=== PATIENT | female | born 1990 | race American Indian/Alaskan Native ===

== ENCOUNTER 2019-10-20 13:08 | Emergency (ER) | payer MEDICAID ==
[2019-10-20] MEDS ORDERED: SODIUM CHLORIDE 0.9% 1000 ML 1,000 ML IV ONE (13:49)
[2019-10-20] MEDS ORDERED: ONDANSETRON 4 MG/2 ML INJ IV ONE (13:49)
[2019-10-20] MEDS ORDERED: MORPHINE 4 MG/1 ML INJ IV ONE (13:49)
[2019-10-20 14:05] LABS: Basophils % (Auto) 0.6 % (0.0-1.8); Hematocrit 38.3 % (30.3-42.9); Hemoglobin 12.1 gm/dl (10.1-14.3); Lymphocytes # (Auto) 0.9 K/mm3 (1.2-5.4); Lymphocytes % (Auto) 12.5 % (13.4-35.0); Mean Corpuscular HGB Conc 32 % (30-34); Mean Corpuscular Volume 79 fl (79-97); Monocytes # (Auto) 0.3 K/mm3 (0.0-0.8); Monocytes % (Auto) 3.7 % (0.0-7.3); Platelet Count 267 K/mm3 (140-440); Red Blood Count 4.85 M/mm3 (3.65-5.03); Red Cell Distribution Width 13.2 % (13.2-15.2)
[2019-10-20 14:06] LABS: Bilirubin,Urine NEG (Negative); Blood,Urine NEG (Negative); Color,Urine Yellow (Yellow); Mucus,Urine 3+ /HPF; Urobilinogen,Urine < 2.0 mg/dL (<2.0)
[2019-10-20 14:36] LABS: Alanine Aminotransferase 12 units/L (7-56); Albumin 4.5 g/dL (3.9-5); Blood Urea Nitrogen 9 mg/dL (7-17); Calcium 9.3 mg/dL (8.4-10.2); Hemolysis Index 47
[2019-10-20 14:43] LABS: BUN/Creatinine Ratio 15
[2019-10-20 15:15] VITALS: BP 106/69
[2019-10-20] MEDS ORDERED: METOCLOPRAMIDE 10 MG/2 ML INJ IV ONE (15:43)
[2019-10-20] MEDS ORDERED: diphenhydrAMINE 50 MG/ML VIAL IV ONE (15:43)
--- NOTE | 2019-10-20 17:24 | Emergency Department Report ---
ED N/V/D HPI - General Chief complaint: Abdominal Pain Stated complaint: VOMIT 2 DAYS Time Seen by Provider: 10/20/19 13:45 Source: patient Mode of arrival: Ambulatory Limitations: No Limitations - History of Present Illness Initial comments: Patient is a 29-year-old female presents emergency room complaints of nausea, vomiting, diarrhea that began 2 days ago. She states that she is unable to tolerate p.o. intake. Patient states that she last ate [employer] and began to experience the symptoms later on. She states she has associated generalized abd ominal discomfort. She denies any fever, dysuria, hematochezia, hematemesis, melena. She denies any sick contacts or recent travel. She denies any recent antibiotics. She denies any past medical history. No allergies to medications. She denies any past abdominal surgical history. She states her last menstrual cycle was last week. - Related Data Previous Rx's Medication Instructions Recorded Last Taken Type Ondansetron [Zofran Odt] 4 mg PO Q8HR PRN #10 tab.rapdis 10/20/19 Unknown Rx Promethazine HCl [Phenergan SUPPOS] 25 mg RC Q8HR PRN #5 supp.rect 10/20/19 Unknown Rx Allergies Allergy/AdvReac Type Severity Reaction Status Date / Time No Known Allergies Allergy Unverified 10/20/19 13:27 ED Review of Systems ROS: Stated complaint: VOMIT 2 DAYS Other details as noted in HPI Comment: All other systems reviewed and negative ED Past Medical Hx - Past Medical History Previous Medical History?: No - Surgical History Past Surgical History?: No - Medications Home Medications: Home Medications Medication Instructions Recorded Confirmed Last Taken Type Ondansetron [Zofran Odt] 4 mg PO Q8HR PRN #10 tab.rapdis 10/20/19 Unknown Rx Promethazine HCl [Phenergan SUPPOS] 25 mg RC Q8HR PRN #5 supp.rect 10/20/19 Unknown Rx ED Physical Exam - General Limitations: No Limitations General appearance: alert, other (actively vomiting) - Head Head exam: Present: atraumatic, normocephalic - Eye Eye exam: Present: normal appearance - ENT ENT exam: Present: mucous membranes moist - Respiratory Respiratory exam: Present: normal lung sounds bilaterally. Absent: respiratory distress, wheezes, rales, rhonchi, stridor, chest wall tenderness, accessory muscle use, decreased breath sounds, prolonged expiratory - Cardiovascular Cardiovascular Exam: Present: regular rate, normal rhythm, normal heart sounds. Absent: systolic murmur, diastolic murmur, rubs, gallop - GI/Abdominal GI/Abdominal exam: Present: soft, normal bowel sounds, other (negative murphys sign, negative mcburneys point ttp). Absent: distended, tenderness, guarding, rebound, rigid - Neurological Exam Neurological exam: Present: alert, oriented X3 - Psychiatric Psychiatric exam: Present: normal affect, normal mood - Skin Skin exam: Present: warm, dry, intact ED Course Vital Signs 10/20/19 10/20/19 10/20/19 13:15 14:11 15:13 Temperature 97.8 F Pulse Rate 81 61 Respiratory 22 18 Rate Blood Pressure 141/82 106/69 O2 Sat by Pulse 97 100 Oximetry ED Medical Decision Making - Lab Data Result diagrams: 10/20/19 13:53 10/20/19 13:53 Lab Results 10/20/19 10/20/19 10/20/19 Range/Units 13:42 13:53 13:53 WBC 7.2 (4.5-11.0) K/mm3 RBC 4.85 (3.65-5.03) M/mm3 Hgb 12.1 (10.1-14.3) gm/dl Hct 38.3 (30.3-42.9) % MCV 79 (79-97) fl MCH 25 L (28-32) pg MCHC 32 (30-34) % RDW 13.2 (13.2-15.2) % Plt Count 267 (140-440) K/mm3 Lymph % (Auto) 12.5 L (13.4-35.0) % Foard % (Auto) 3.7 (0.0-7.3) % Eos % (Auto) 0.0 (0.0-4.3) % Baso % (Auto) 0.6 (0.0-1.8) % Lymph # 0.9 L (1.2-5.4) K/mm3 Foard # 0.3 (0.0-0.8) K/mm3 Eos # 0.0 (0.0-0.4) K/mm3 Baso # 0.0 (0.0-0.1) K/mm3 Seg Neutrophils % 83.2 H (40.0-70.0) % Seg Neutrophils # 6.0 (1.8-7.7) K/mm3 Sodium 139 (137-145) mmol/L Potassium 3.5 L (3.6-5.0) mmol/L Chloride 99.3 (98-107) mmol/L Carbon Dioxide 23 (22-30) mmol/L Anion Gap 20 mmol/L BUN 9 (7-17) mg/dL Creatinine 0.6 (0.6-1.2) mg/dL Estimated GFR > 60 ml/min BUN/Creatinine Ratio 15 % Glucose 118 H (65-100) mg/dL Calcium 9.3 (8.4-10.2) mg/dL Total Bilirubin 0.20 (0.1-1.2) mg/dL AST 21 (5-40) units/L ALT 12 (7-56) units/L Alkaline Phosphatase 58 (35-129) units/L Total Protein 8.1 (6.3-8.2) g/dL Albumin 4.5 (3.9-5) g/dL Albumin/Globulin Ratio 1.3 % Lipase (13-60) units/L HCG, Qual (Negative) Urine Color Yellow (Yellow) Urine Turbidity Clear (Clear) Urine pH 7.0 (5.0-7.0) Ur Specific [place] 1.025 (1.003-1.030) Urine Protein 30 mg/dl (Negative) mg/dL Urine Glucose (UA) Neg (Negative) mg/dL Urine Ketones 20 (Negative) mg/dL Urine Blood Neg (Negative) Urine Nitrite Neg (Negative) Urine Bilirubin Neg (Negative) Urine Urobilinogen < 2.0 (<2.0) mg/dL Ur Leukocyte Esterase Neg (Negative) Urine WBC (Auto) 3.0 (0.0-6.0) /HPF Urine RBC (Auto) 7.0 (0.0-6.0) /HPF U Epithel Cells (Auto) 5.0 (0-13.0) /HPF Urine Mucus 3+ /HPF 10/20/19 10/20/19 Range/Units 13:53 13:53 WBC (4.5-11.0) K/mm3 RBC (3.65-5.03) M/mm3 Hgb (10.1-14.3) gm/dl Hct (30.3-42.9) % MCV (79-97) fl MCH (28-32) pg MCHC (30-34) % RDW (13.2-15.2) % Plt Count (140-440) K/mm3 Lymph % (Auto) (13.4-35.0) % Foard % (Auto) (0.0-7.3) % Eos % (Auto) (0.0-4.3) % Baso % (Auto) (0.0-1.8) % Lymph # (1.2-5.4) K/mm3 Foard # (0.0-0.8) K/mm3 Eos # (0.0-0.4) K/mm3 Baso # (0.0-0.1) K/mm3 Seg Neutrophils % (40.0-70.0) % Seg Neutrophils # (1.8-7.7) K/mm3 Sodium (137-145) mmol/L Potassium (3.6-5.0) mmol/L Chloride (98-107) mmol/L Carbon Dioxide (22-30) mmol/L Anion Gap mmol/L BUN (7-17) mg/dL Creatinine (0.6-1.2) mg/dL Estimated GFR ml/min BUN/Creatinine Ratio % Glucose (65-100) mg/dL Calcium (8.4-10.2) mg/dL Total Bilirubin (0.1-1.2) mg/dL AST (5-40) units/L ALT (7-56) units/L Alkaline Phosphatase (35-129) units/L Total Protein (6.3-8.2) g/dL Albumin (3.9-5) g/dL Albumin/Globulin Ratio % Lipase 12 L (13-60) units/L HCG, Qual Negative (Negative) Urine Color (Yellow) Urine Turbidity (Clear) Urine pH (5.0-7.0) Ur Specific [place] (1.003-1.030) Urine Protein (Negative) mg/dL Urine Glucose (UA) (Negative) mg/dL Urine Ketones (Negative) mg/dL Urine Blood (Negative) Urine Nitrite (Negative) Urine Bilirubin (Negative) Urine Urobilinogen (<2.0) mg/dL Ur Leukocyte Esterase (Negative) Urine WBC (Auto) (0.0-6.0) /HPF Urine RBC (Auto) (0.0-6.0) /HPF U Epithel Cells (Auto) (0-13.0) /HPF Urine Mucus /HPF - Medical Decision Making Patient is a 29-year-old female presents emergency room complaints of nausea, vomiting, diarrhea that began 2 days ago. She states that she is unable to tolerate p.o. intake. Patient states that she last ate [employer] and began to experience the symptoms later on. She states she has associated generalized abdominal discomfort. She denies any fever, dysuria, hematochezia, hematemesis, melena. She denies any sick contacts or recent travel. She denies any recent antibiotics. She denies any past medical history. No allergies to medications. She denies any past abdominal surgical history. She states her last menstrual cycle was last week. vitals are stable. on exam: No abdominal tenderness, no guarding, no rebound, no rigidity, normal bowel sounds. Labs are stable. UA is within normal limits. No leukocytosis. No fever. pt given Fluids, antiemetics, morphine. Symptoms completely resolved and patient was feeling much better. Patient was able to tolerate p.o. intake while in the emergency department. She states that she no longer has any abdominal discomfort. Symptoms appear most likely related to a gastroenteritis. Advised patient that she need to have a repeat abdominal examination within 2 days. Discussed strict return precautions with patient. Patient given prescription for Zofran and Phenergan suppositories. Advised patient Please take medication as prescribed. Increase your water intake. Eat a bland liquid diet and slowly advance your diet as tolerated. Follow-up with your primary care doctor in the next few days for reexamination. Return to emergency room immediately for any new or worsening symptoms including but not limited to worsening abdominal pain, fever, constant vomiting/diarrhea, unable to tolerate by mouth intake, blood in the stool or vomit, etc. - Differential Diagnosis Gastroenteritis, viral syndrome, UTI, colitis, obstruction, appendicitis Critical care attestation.: If time is entered above; I have spent that time in minutes in the direct care of this critically ill patient, excluding procedure time. ED Disposition Clinical Impression: Nausea vomiting and diarrhea Abdominal pain Qualifiers: Abdominal location: generalized Qualified Code(s): R10.84 - Generalized abdominal pain Disposition: DC-01 TO HOME OR SELFCARE Is pt being admited?: No Does the pt Need Aspirin: No Condition: Stable Instructions: Gastroenteritis (ED) Additional Instructions: Please take medication as prescribed. Increase your water intake. Eat a bland liquid diet and slowly advance your diet as tolerated. Follow-up with your primary care doctor in the next few days for reexamination. Return to emergency room immediately for any new or worsening symptoms including but not limited to worsening abdominal pain, fever, constant vomiting/diarrhea, unable to tolerate by mouth intake, blood in the stool or vomit, etc. Prescriptions: Promethazine HCl [Phenergan SUPPOS] 25 mg RC Q8HR PRN #5 supp.rect PRN Reason: Nausea And Vomiting Ondansetron [Zofran Odt] 4 mg PO Q8HR PRN #10 tab.rapdis PRN Reason: Nausea And Vomiting Referrals: BETZAIDA SHANKAR MD [Staff Physician] - 2-3 Days [facility] [Provider Group] - 2-3 Days Forms: Work/School Release Form(ED) Time of Disposition: 17:42 Print Language: SPANISH
== END 2019-10-20 18:10 | disposition home or self-care (01) ==
LOC: ED 13:08
DX: R11.2 Nausea with vomiting, unspecified (principal); R19.7 Diarrhea, unspecified; R10.84 Generalized abdominal pain; Z79.899 Other long term (current) drug therapy
CPT/HCPCS: 36415; 80053; 81001; 83690; 84703; 85025; 96361; 96374; 96375; 99283; J1200; J2270; J2405; J2765; J7030

== ENCOUNTER 2020-05-03 11:12 | Emergency (ER) | payer MEDICAID ==
--- NOTE | 2020-05-03 11:59 | Event Note ---
ED Screening Note Date of service: 05/03/20 Time: 11:58 ED Screening Note: 29-year-old -Chinese female with no past medical history presents to the emergency room stating that the room is spinning body feels weak nausea diarrhea x2 days. Patient is taking nothing for her symptoms. This initial assessment/diagnostic orders/clinical plan/treatment(s) is/are subject to change based on patients health status, clinical progression and re- assessment by fellow clinical providers in the ED. Further treatment and workup at subsequent clinical providers discretion. Patient/guardian urged not to elope from the ED as their condition may be serious if not clinically assessed and managed. Initial orders include:
[2020-05-03] MEDS ORDERED: SODIUM CHLORIDE 0.9% 1000 ML 1,000 ML IV ONE (12:47)
[2020-05-03] MEDS ORDERED: ACETAMINOPHEN 325 MG TAB PO ONE (12:48)
[2020-05-03] MEDS ORDERED: ONDANSETRON 4 MG/2 ML INJ IV ONE (12:48)
--- NOTE | 2020-05-03 13:04 | Emergency Department Report ---
ED N/V/D HPI - General Chief complaint: Abdominal Pain Stated complaint: WEAKNESS/DIZZYNESS Source: patient, EMS Mode of arrival: Ambulatory Limitations: No Limitations - History of Present Illness Initial comments: 29-year-old female presents to the emergency room complaining of diarrhea x2 episodes, nausea ,weakness, dizziness, chills and headache. She denies cough no chest pain no shortness of breath no known sick contacts. LMP is 04/30/2020 she denies any significant medical history. Patient is well-appearing and in no acute distress MD complaint: nausea, diarrhea -: days(s) (Yesterday) Description of Vomiting: watery Associated Abdominal Pain: No Location: diffuse Radiation: none Severity: mild Pain Scale: 10 Consistency: constant Improves with: none Worsens with: movement Associated Symptoms: headaches. denies: chest pain, cough, diaphoresis, shortness of breath, syncope - Related Data Previous Rx's Medication Instructions Recorded Last Taken Type Ondansetron [Zofran Odt] 4 mg PO Q8HR PRN #10 tab.rapdis 10/20/19 Unknown Rx Promethazine HCl [Phenergan SUPPOS] 25 mg RC Q8HR PRN #5 supp.rect 10/20/19 Unkn own Rx Ondansetron [Zofran Odt] 4 mg PO Q8HR #12 tab.rapdis 05/03/20 Unknown Rx Allergies Allergy/AdvReac Type Severity Reaction Status Date / Time No Known Allergies Allergy Unverified 10/20/19 13:27 ED Review of Systems ROS: Stated complaint: WEAKNESS/DIZZYNESS Other details as noted in HPI Comment: All other systems reviewed and negative Constitutional: chills. denies: fever, malaise, weakness Eyes: denies: eye pain, vision change ENT: denies: ear pain, throat pain, dental pain Respiratory: denies: cough, orthopnea, shortness of breath, SOB with exertion, SOB at rest Cardiovascular: denies: chest pain, palpitations, dyspnea on exertion Endocrine: no symptoms reported. denies: excessive sweating, intolerance to cold, intolerance to heat Gastrointestinal: nausea, diarrhea. denies: abdominal pain, vomiting, constipation, hematemesis Genitourinary: denies: urgency, dysuria, hematuria, discharge Musculoskeletal: denies: back pain Skin: denies: rash Neurological: denies: headache, weakness, numbness, paresthesias, confusion Psychiatric: denies: anxiety, depression, auditory hallucinations, visual hallucinations ED Past Medical Hx - Past Medical History Previous Medical History?: Yes Additional medical history: Vaginal delivery x 4 - Surgical History Past Surgical History?: No - Social History Smoking Status: Current Some Day Smoker Substance Use Type: Alcohol, Marijuana - Medications Home Medications: Home Medications Medication Instructions Recorded Confirmed Last Taken Type Ondansetron [Zofran Odt] 4 mg PO Q8HR PRN #10 tab.rapdis 10/20/19 Unknown Rx Promethazine HCl [Phenergan SUPPOS] 25 mg RC Q8HR PRN #5 supp.rect 10/20/19 Unknown Rx Ondansetron [Zofran Odt] 4 mg PO Q8HR #12 tab.rapdis 05/03/20 Unknown Rx ED Physical Exam - General Limitations: No Limitations General appearance: alert, in no apparent distress - Head Head exam: Absent: atraumatic, normal inspection - Eye Eye exam: Present: normal appearance - ENT ENT exam: Present: normal exam, mucous membranes moist, TM's normal bilaterally - Neck Neck exam: Present: normal inspection, full ROM. Absent: tenderness, lymphadenopathy - Respiratory Respiratory exam: Present: normal lung sounds bilaterally. Absent: respiratory distress, wheezes, rales - Cardiovascular Cardiovascular Exam: Present: regular rate, normal heart sounds - GI/Abdominal GI/Abdominal exam: Present: tenderness (Mild tenderness and feeling more nauseated when stomach is palpated) - Rectal Rectal exam: Absent: deferred - Extremities Exam Extremities exam: Present: normal inspection, normal capillary refill - Back Exam Back exam: Present: normal inspection - Neurological Exam Neurological exam: Present: alert, oriented X3 - Psychiatric Psychiatric exam: Present: normal affect - Skin Skin exam: Present: warm, dry, normal color ED Course Vital Signs 05/03/20 05/03/20 05/03/20 11:29 13:33 16:34 Temperature 98.8 F 98.1 F Pulse Rate 63 63 Respiratory 18 18 16 Rate Blood Pressure 125/82 Blood Pressure 129/89 [Left] O2 Sat by Pulse 100 99 Oximetry ED Medical Decision Making - Lab Data Result diagrams: 05/03/20 12:20 05/03/20 12:20 - Medical Decision Making 29-year-old female in the emergency room with complaints of loose stools for 2 days associated with nausea and couple episodes of vomiting. She has no fever no URI symptoms no known sick contacts on evaluation examination she is well- appearing laboratory evaluation with no significant no significant findings just a mild white count of 4.3 no obvious signs of urinary tract infection and patient is not . This is most likely gastroenteritis could possibly be Covid-like symptoms patient encouraged to get outside testing for Covid and to follow-up with with her primary care or emergency room for any worsening symptoms Critical Care Time: No Critical care attestation.: If time is entered above; I have spent that time in minutes in the direct care of this critically ill patient, excluding procedure time. ED Disposition Clinical Impression: Viral gastroenteritis Disposition: - TO HOME OR SELFCARE Is pt being admited?: No Does the pt Need Aspirin: No Condition: Stable Instructions: Viral Gastroenteritis, Adult, [id number], Abdominal Pain (ED) Additional Instructions: Drink plenty fluids at least 6 to 8 glasses of water per day drink bland diet Sprite arun dana chicken broth Jell-O until you are tolerating well. Follow-up with your primary care doctor in 3 to 5 days return to the emergency room for any worsening symptoms such as increasing abdominal pain inability to hold your fluids increasing vomiting or diarrhea. Take Zofran as ordered for nausea and vomiting. I also suggest that you consider getting a Covid test done at a local Covid testing center. Please refer to the list of places that you were given Prescriptions: Ondansetron [Zofran Odt] 4 mg PO Q8HR #12 tab.rapdis Referrals: PRIMARY MD SUE [Primary Care Provider] - 3-5 Days BETZAIDA SHANKAR MD [Staff Physician] - 3-5 Days Time of Disposition: 16:20
[2020-05-03 13:20] LABS: Basophils % (Auto) 0.9 % (0.0-1.8); Eosinophils % (Auto) 0.6 % (0.0-4.3); Hematocrit 38.2 % (30.3-42.9); Lymphocytes # (Auto) 1.5 K/mm3 (1.2-5.4); Lymphocytes % (Auto) 34.9 % (13.4-35.0); Mean Corpuscular HGB Conc 31 % (30-34); Mean Corpuscular Volume 81 fl (79-97); Monocytes # (Auto) 0.5 K/mm3 (0.0-0.8); Monocytes % (Auto) 11.4 % (0.0-7.3); Platelet Count 212 K/mm3 (140-440); Red Blood Count 4.72 M/mm3 (3.65-5.03); Red Cell Distribution Width 13.5 % (13.2-15.2)
[2020-05-03 13:27] LABS: Alanine Aminotransferase 15 units/L (7-56); Albumin 4.1 g/dL (3.9-5); BUN/Creatinine Ratio 10; Blood Urea Nitrogen 8 mg/dL (7-17); Calcium 8.8 mg/dL (8.4-10.2); Hemolysis Index 4
[2020-05-03] MEDS ORDERED: MECLIZINE 25 MG TAB PO ONE (14:49)
[2020-05-03 16:17] LABS: Bacteria,Urine 1+ /HPF (Negative); Bilirubin,Urine NEG (Negative); Blood,Urine NEG (Negative); Color,Urine Straw (Yellow); Protein,Urine <15 mg/dL mg/dL (Negative); Urobilinogen,Urine < 2.0 mg/dL (<2.0); WBC,Urine < 1.0 /HPF (0.0-6.0)
[2020-05-03 16:18] LABS: HCG Qualitative,Urine Negative (Negative)
[2020-05-03 16:34] VITALS: BP 129/89
== END 2020-05-03 16:34 | disposition home or self-care (01) ==
LOC: ED 11:12
DX: A08.4 Viral intestinal infection, unspecified (principal); F12.10 Cannabis abuse, uncomplicated; Z79.899 Other long term (current) drug therapy
CPT/HCPCS: 36415; 80053; 81001; 81025; 85025; 96361; 96374; 99284; J2405; J7030